=== PATIENT | male | born 1990 | race Caucasian/White ===

== ENCOUNTER 2016-05-08 14:33 | Emergency (ER) | payer BC ==
[2016-05-08 14:55] VITALS: BP 136/68
--- NOTE | 2016-05-08 16:56 | UC ---
Ear Complaint HPI - HPI Summary HPI Summary: complaints, of frontal headache, unable to sleep at night pain with movement of head. Ears are popping a lot, for past week. Had a cold 8 days ago start. Ear pressure worsened the past few days. No fevers. Significant frontal pressure . ( -) fever, chills, night sweats, vision changes, back pain, n/v/d. [ End ] - History of Current Complaint Chief Complaint: UCGeneralIllness Stated Complaint: SINUSES Time Seen by Provider: 05/08/16 16:47 Hx Obtained From: Patient Onset/Duration: Gradual Onset Severity Initially: Mild Severity Currently: Moderate Alleviating Factors: OTC Meds - Allergies/Home Medications Allergies/Adverse Reactions: Allergies Allergy/AdvReac Type Severity Reaction Status Date / Time Amoxicillin Allergy Unknown Verified 05/08/16 14:55 Reaction Details Home Medications: Home Medications Phenylephrine-Chlorpheniramine [[place] Plus Cold &] 1 cap PO DAILY [History Confirmed 05/08/16] PMH/Surg Hx/FS Hx/Imm Hx Previously Healthy: Yes Endocrine History Of: Denies: Thyroid Disease Cardiovascular History Of: Denies: Cardiac Disorders Respiratory History Of: Denies: COPD GI/ History Of: Denies: Gastroesophageal Reflux Neurological History Of: Denies: TIA Psychological History Of: Denies: Anxiety Cancer History Of: Denies: Lung Cancer Other History Of: Negative For: HIV - Surgical History Surgical History: None - Family History Known Family History: Positive: None - Social History Occupation: Employed Full-time - Plumbing Lives: With Family Alcohol Use: Occasionally Substance Use Type: None Smoking Status (MU): Never Smoked Tobacco Have You Smoked in the Last Year: No Review of Systems Constitutional: Fever, Chills Skin: Negative Eyes: Negative ENT: Sore Throat, Ear Ache, Nasal Discharge Respiratory: Negative Cardiovascular: Negative Gastrointestinal: Negative Genitourinary: Negative Motor: Negative Neurovascular: Negative Musculoskeletal: Negative Neurological: Negative Psychological: Negative All Other Systems Reviewed And Are Negative: Yes Physical Exam Triage Information Reviewed: Yes Appearance: Well-Appearing, No Pain Distress, Well-Nourished Vital Signs: Initial Vital Signs Temp 98.5 F 05/08/16 14:51 Pulse 74 05/08/16 14:51 Resp 16 05/08/16 14:51 BP 136/68 05/08/16 14:51 Pulse Ox 100 05/08/16 14:51 Vital Signs Reviewed: Yes Eye Exam: Normal ENT Exam: Normal ENT: Positive: Pharynx normal, Nasal congestion, Nasal drainage, TMs normal. Negative: Other: - frontal sinus tenderness to palpation Dental Exam: Normal Neck exam: Normal Neck: Positive: 1 Respiratory Exam: Normal Cardiovascular Exam: Normal Musculoskeletal Exam: Normal Neurological Exam: Normal Psychological Exam: Normal Skin Exam: Normal Ear Complaint Course/Dx - Course Course Of Treatment: He is aware since PCN allergy needs Z pack. Aware of SE like hepatitis, worsening of infection, C diff and will try to not use if he can by conservative treatment in the next 3 days - Differential Dx/Diagnosis Provider Diagnoses: Sinusitis Discharge - Discharge Plan Condition: Good Disposition: HOME Patient Education Materials: Sinusitis (ED)
== END 2016-05-08 17:08 | disposition home or self-care (01) ==
LOC: UCCORT 14:33
DX: J32.9 Chronic sinusitis, unspecified (principal); Z88.1 Allergy status to other antibiotic agents
CPT/HCPCS: 99202; G0463